=== PATIENT | male | born 1955 | race Hispanic/Latino ===

== ENCOUNTER 2021-01-23 22:03 | Emergency (ER) | payer MEDICARE ==
[2021-01-23 23:20] LABS: Bilirubin Negative (Negative); Blood, Urine 2+ (Negative); Clarity Turbid (Clear); Glucose, Urine (Dipstick) Normal (Negative); Ketone, Urine Negative (Negative); Leukocyte 500 Leu/uL (Negative); Nitrite Negative (Negative); Protein, Urine (Dipstick) 300 mg/dL (Neg-Trace); Specific Gravity, Urine 1.009 (1.002-1.036); Squamous Epithelial None Seen HPF (0-3); Urobilinogen Normal mg/dL (Less than 2); WBC/HPF Greater than 50 HPF (0-3)
[2021-01-23 23:29] LABS: Bacteria/HPF 2+ HPF (None Seen)
[2021-01-24] MEDS ORDERED: cloNIDine 0.1 MG TAB ONE (02:05)
[2021-01-24] MEDS ORDERED: hydrALAZINE 25 MG TAB ONE (02:05)
== END 2021-01-24 02:20 | disposition home or self-care (01) ==
LOC: ERS 22:03
DX: N39.0 Urinary tract infection, site not specified (principal); R33.9 Retention of urine, unspecified; E78.5 Hyperlipidemia, unspecified; I10 Essential (primary) hypertension; E11.22 Type 2 diabetes mellitus with diabetic chronic kidney disease; I12.9 Hypertensive chronic kidney disease with stage 1 through stage 4 chronic kidney disease, or unspecified chronic kidney disease; N18.4 Chronic kidney disease, stage 4 (severe); Z79.899 Other long term (current) drug therapy
CPT/HCPCS: 51703; 81003; 81015

== ENCOUNTER 2021-02-20 15:45 | Inpatient (IN) | payer MEDICARE ==
[2021-02-20 16:18] LABS: #Eosinphils 0.5 thou/uL (0.0-0.7); #Lymphocytes 0.9 thou/uL (1.20-3.40); #Monocytes 0.9 thou/uL (0.11-0.59); #Neutrophils 10.5 thou/uL (1.40-6.50); %Basophils 0.1 % (0.0-1.0); %Eosinophils 4.2 % (0.0-10.0); %Lymphocytes 7.3 % (21.0-51.0); %Monocytes 6.8 % (0.0-10.0); %Neutrophils 81.5 % (42.0-75.0); Hemoglobin 9.4 g/dL (14.0-18.0); Mean Corpuscular HGB CONC 33.7 g/dL (32.0-36.0); Mean Corpuscular Hemoglobin 29.8 pg (27.0-31.0); Mean Corpuscular Volume 88.4 fL (78.0-98.0); Mean Platelet Volume 8.8 fL (7.4-10.4); Platelet Count 172 thou/uL (130-400); RBC Distribution Width 13.1 % (11.5-14.5); Red Blood Cell (RBC) Count 3.15 mill/uL (4.70-6.10); White Blood Cell (WBC) Count 12.9 thou/uL (4.8-10.8)
[2021-02-20 16:39] LABS: ALT (SGPT) 19 U/L (8-55); AST (SGOT) 14 U/L (5-34); Albumin 3.8 g/dL (3.4-4.8); Alkaline Phosphatase 149 U/L (40-110); Anion Gap 12 mmol/L (10-20); BUN (Urea Nitrogen) 64 mg/dL (8.4-25.7); Bilirubin, Total 0.4 mg/dL (0.2-1.2); CK (CPK) 159 U/L (30-200); Calc. Creatinine Clearance 0 mL/min (70-130); Calcium 8.7 mg/dL (7.8-10.44); Carbon Dioxide 20 mmol/L (23-31); Chloride 106 mmol/L (98-107); Globulin 3.6 g/dL (2.4-3.5); Glucose 98 mg/dL (80-115); Potassium 4.4 mmol/L (3.5-5.1); Protein, Total 7.4 g/dL (5.8-8.1); Sodium 134 mmol/L (136-145)
[2021-02-20 19:10] LABS: Bacteria/HPF None Seen HPF (None Seen); Bilirubin Negative (Negative); Blood, Urine 1+ (Negative); Clarity Clear (Clear); Glucose, Urine (Dipstick) Normal (Negative); Ketone, Urine Negative (Negative); Leukocyte 250 Leu/uL (Negative); Nitrite Negative (Negative); Protein, Urine (Dipstick) 300 mg/dL (Neg-Trace); Specific Gravity, Urine 1.007 (1.002-1.036); Squamous Epithelial None Seen HPF (0-3); Urobilinogen Normal mg/dL (Less than 2); WBC/HPF Greater than 50 HPF (0-3)
[2021-02-20] MEDS ORDERED: cefTRIAXone\\ROCEPHIN 1 GM VIAL ONE (20:28)
[2021-02-20] MEDS ORDERED: hydrALAZINE 20 MG/ML VIAL ONE (21:34)
[2021-02-20] MEDS ORDERED: hydrALAZINE 20 MG/ML VIAL SLOW IVP PRN (21:41)
[2021-02-20] MEDS ORDERED: Acetaminophen 325 MG TAB ONE (21:49)
[2021-02-20 22:01] LABS: HBSAg Index 0.23 S/CO (0-0.99); Hep B Surf Ag Non-Reactive S/CO (NonReactive); Hep C IgG Ab Non-Reactive (NonReactive); Hep C Index 0.07 S/CO (0-0.79)
[2021-02-20] MEDS ORDERED: Labetalol HCl 100 MG/20 ML VIAL ONE (23:02)
[2021-02-20] MEDS ORDERED: Ondansetron PF 4 MG/2 ML Vial IVP PRN (23:05)
[2021-02-20] MEDS ORDERED: HumaLOG 300 UNITS/3 ML VIAL SC PRN ×2 (23:05)
[2021-02-20] MEDS ORDERED: Dextrose 50% Abboject 50 ML SYRINGE SLOW IVP PRN (23:05)
[2021-02-20] MEDS ORDERED: Ondansetron ODT 4 MG TAB PO PRN (23:05)
[2021-02-20] MEDS ORDERED: Dextrose 5% in Water 1,000 ML IV PRN (23:05)
[2021-02-20] MEDS ORDERED: NIFEdipine XL 60 MG TAB PO SCH (23:30)
[2021-02-21 01:11] VITALS: BMI 25.7
[2021-02-21] MEDS: Albumin 25% 25 GM/100 ML BOT IVPB SCH ×4 (01:37→14:36)
[2021-02-21 06:14] LABS: #Eosinphils 0.6 thou/uL (0.0-0.7); #Lymphocytes 1.1 thou/uL (1.20-3.40); #Monocytes 0.9 thou/uL (0.11-0.59); #Neutrophils 8.3 thou/uL (1.40-6.50); %Basophils 0.3 % (0.0-1.0); %Eosinophils 5.8 % (0.0-10.0); %Lymphocytes 10.3 % (21.0-51.0); %Monocytes 7.8 % (0.0-10.0); %Neutrophils 75.9 % (42.0-75.0); Hemoglobin 9.3 g/dL (14.0-18.0); Mean Corpuscular HGB CONC 33.6 g/dL (32.0-36.0); Mean Corpuscular Hemoglobin 29.8 pg (27.0-31.0); Mean Corpuscular Volume 88.8 fL (78.0-98.0); Mean Platelet Volume 9.6 fL (7.4-10.4); Platelet Count 167 thou/uL (130-400); RBC Distribution Width 13.1 % (11.5-14.5); Red Blood Cell (RBC) Count 3.11 mill/uL (4.70-6.10); White Blood Cell (WBC) Count 10.9 thou/uL (4.8-10.8)
[2021-02-21 06:34] LABS: Anion Gap 12 mmol/L (10-20); BUN (Urea Nitrogen) 60 mg/dL (8.4-25.7); Calc. Creatinine Clearance 16 mL/min (70-130); Carbon Dioxide 19 mmol/L (23-31); Chloride 110 mmol/L (98-107); Glucose 81 mg/dL (80-115); Iron 20 ug/dL (65-175); Iron Binding Capacity, Total 258 mcg/dL (261-462); Sodium 137 mmol/L (136-145)
[2021-02-21] MEDS: Calcium Acetate 667 MG CAP PO SCH ×3 (08:32→17:31)
[2021-02-21] MEDS: NIFEdipine XL 60 MG TAB PO SCH ×4 (08:33→20:50)
[2021-02-21] MEDS: Calcitriol 0.25 MCG CAP PO SCH (08:33)
[2021-02-21] MEDS: Carvedilol 25 MG TAB PO SCH ×2 (08:34→17:32)
[2021-02-21] MEDS: Heparin 5,000 UNITS/ML VIAL SC SCH ×3 (08:35→20:49)
[2021-02-21] MEDS ORDERED: MULTIVIT MINERALS PO SCH (09:00)
[2021-02-21] MEDS ORDERED: [UNRECOGNIZED DRUG - OTHER] PO SCH (09:00)
[2021-02-21] MEDS ORDERED: LYCOPENE PO SCH (09:00)
[2021-02-21] MEDS ORDERED: Non-Formulary Item 1 EACH (Sodium Bicarbonate [Sodium Bicarbonate] 650 MG Tablet) PO SCH (09:00)
[2021-02-21] MEDS ORDERED: hydrALAZINE 25 MG TAB PO SCH (09:00)
[2021-02-21] MEDS ORDERED: Non-Formulary Item 1 EACH (Ferrous Sulfate [Ferrous Sulfate] 325 MG Tablet) PO SCH (09:00)
[2021-02-21] MEDS ORDERED: Carvedilol 25 MG TAB PO SCH (09:00)
[2021-02-21] MEDS: Ferrous Sulfate 325 MG TAB PO SCH ×2 (10:16→20:49)
[2021-02-21] MEDS: Sodium Bicarbonate Tab 325 MG TAB PO SCH ×2 (10:16→20:48)
[2021-02-21] MEDS: Multivitamin W/ Minerals 1 TAB PO SCH (10:17)
[2021-02-21] MEDS: Tamsulosin HCl 0.4 MG CAP PO SCH (10:17)
[2021-02-21] MEDS: hydrALAZINE 25 MG TAB PO SCH ×2 (10:25→20:48)
[2021-02-21 12:01] LABS: #Basophils 0.1 thou/uL (0.0-0.2); #Eosinphils 0.6 thou/uL (0.0-0.7); #Lymphocytes 0.7 thou/uL (1.20-3.40); #Monocytes 0.7 thou/uL (0.11-0.59); %Basophils 0.6 % (0.0-1.0); %Eosinophils 7.1 % (0.0-10.0); %Lymphocytes 7.7 % (21.0-51.0); %Monocytes 7.4 % (0.0-10.0); %Neutrophils 77.2 % (42.0-75.0); Hemoglobin 9.1 g/dL (14.0-18.0); Mean Corpuscular HGB CONC 32.5 g/dL (32.0-36.0); Mean Corpuscular Hemoglobin 28.8 pg (27.0-31.0); Mean Corpuscular Volume 88.5 fL (78.0-98.0); Mean Platelet Volume 9.3 fL (7.4-10.4); Platelet Count 170 thou/uL (130-400); RBC Distribution Width 13.4 % (11.5-14.5); Red Blood Cell (RBC) Count 3.17 mill/uL (4.70-6.10)
[2021-02-21 19:38] LABS: SARS-CoV-2 PCR by NAA Not Detected (NotDetected)
[2021-02-21] MEDS ORDERED: cefTRIAXone\\ROCEPHIN 1 GM in Sodium Chloride 0.9% 100 ML IVPB SCH (20:00)
[2021-02-21] MEDS: Acetaminophen 325 MG TAB PO PRN (20:47)
[2021-02-21] MEDS: Atorvastatin Calcium 20 MG TAB PO SCH (20:49)
[2021-02-21] MEDS ORDERED: Simvastatin 40 MG TAB PO SCH (21:00)
[2021-02-22 06:19] LABS: Anion Gap 14 mmol/L (10-20); BUN (Urea Nitrogen) 55 mg/dL (8.4-25.7); Calc. Creatinine Clearance 16 mL/min (70-130); Calcium 9.1 mg/dL (7.8-10.44); Carbon Dioxide 19 mmol/L (23-31); Chloride 107 mmol/L (98-107); Glucose 116 mg/dL (80-115); Sodium 136 mmol/L (136-145)
[2021-02-22] MEDS: NIFEdipine XL 60 MG TAB PO SCH ×3 (09:36→20:13)
[2021-02-22] MEDS: Tamsulosin HCl 0.4 MG CAP PO SCH (09:36)
[2021-02-22] MEDS: Multivitamin W/ Minerals 1 TAB PO SCH (09:36)
[2021-02-22] MEDS: Calcium Acetate 667 MG CAP PO SCH ×3 (09:36→17:49)
[2021-02-22] MEDS: Ferrous Sulfate 325 MG TAB PO SCH ×2 (09:36→20:14)
[2021-02-22] MEDS: hydrALAZINE 25 MG TAB PO SCH ×2 (09:37→20:14)
[2021-02-22] MEDS: Calcitriol 0.25 MCG CAP PO SCH (09:37)
[2021-02-22] MEDS: Sodium Bicarbonate Tab 325 MG TAB PO SCH ×2 (09:37→20:13)
[2021-02-22] MEDS: Carvedilol 25 MG TAB PO SCH ×2 (09:37→17:49)
[2021-02-22] MEDS: Heparin 5,000 UNITS/ML VIAL SC SCH ×3 (09:37→20:13)
[2021-02-22 16:14] LABS: ANA Symphony (Qualitative) Negative (Negative); ANA Symphony (Quantitative) 0.1 Ratio (< 0.7 Negative); dsDNA IgG Antibody Less than 0.5 IU/mL (<10 Negative)
[2021-02-22] MEDS: Atorvastatin Calcium 20 MG TAB PO SCH (20:14)
[2021-02-22] MEDS: Cephalexin 250 MG CAP PO SCH (20:14)
[2021-02-23] MEDS: Acetaminophen 325 MG TAB PO PRN ×2 (05:20→15:02)
[2021-02-23 05:52] LABS: #Eosinphils 0.9 thou/uL (0.0-0.7); #Lymphocytes 1.2 thou/uL (1.20-3.40); #Monocytes 1.1 thou/uL (0.11-0.59); #Neutrophils 8.1 thou/uL (1.40-6.50); %Basophils 0.4 % (0.0-1.0); %Eosinophils 7.9 % (0.0-10.0); %Lymphocytes 10.4 % (21.0-51.0); %Monocytes 9.8 % (0.0-10.0); %Neutrophils 71.5 % (42.0-75.0); Hemoglobin 8.1 g/dL (14.0-18.0); Mean Corpuscular HGB CONC 33.2 g/dL (32.0-36.0); Mean Corpuscular Hemoglobin 29.2 pg (27.0-31.0); Mean Platelet Volume 9.5 fL (7.4-10.4); Platelet Count 166 thou/uL (130-400); RBC Distribution Width 13.1 % (11.5-14.5); Red Blood Cell (RBC) Count 2.78 mill/uL (4.70-6.10); White Blood Cell (WBC) Count 11.3 thou/uL (4.8-10.8)
[2021-02-23 06:13] LABS: Anion Gap 13 mmol/L (10-20); BUN (Urea Nitrogen) 57 mg/dL (8.4-25.7); Calc. Creatinine Clearance 15 mL/min (70-130); Calcium 8.9 mg/dL (7.8-10.44); Carbon Dioxide 19 mmol/L (23-31); Chloride 106 mmol/L (98-107); Glucose 92 mg/dL (80-115); Potassium 4.2 mmol/L (3.5-5.1); Sodium 134 mmol/L (136-145)
[2021-02-23] MEDS: Ferrous Sulfate 325 MG TAB PO SCH ×2 (08:06→20:15)
[2021-02-23] MEDS: Multivitamin W/ Minerals 1 TAB PO SCH (08:06)
[2021-02-23] MEDS: Calcium Acetate 667 MG CAP PO SCH ×3 (08:06→16:02)
[2021-02-23] MEDS: Calcitriol 0.25 MCG CAP PO SCH (08:06)
[2021-02-23] MEDS: Carvedilol 25 MG TAB PO SCH ×2 (08:06→16:02)
[2021-02-23] MEDS: Sodium Bicarbonate Tab 325 MG TAB PO SCH ×2 (08:06→20:22)
[2021-02-23] MEDS: Tamsulosin HCl 0.4 MG CAP PO SCH (08:07)
[2021-02-23] MEDS: NIFEdipine XL 60 MG TAB PO SCH ×2 (08:07→20:16)
[2021-02-23] MEDS: hydrALAZINE 25 MG TAB PO SCH ×2 (08:07→20:15)
[2021-02-23] MEDS: Heparin 5,000 UNITS/ML VIAL SC SCH ×3 (08:07→20:16)
[2021-02-23] MEDS: Cephalexin 250 MG CAP PO SCH ×2 (08:07→20:22)
[2021-02-23] MEDS ORDERED: EPOETIN ALFA-EPBX (ESRD) 4,000 UNIT/ML VIAL SC SCH (10:00)
[2021-02-23] MEDS ORDERED: CEFAZOLIN 2 GM in Premix Bag 1 BAG IVPB SCH (13:00)
[2021-02-23 15:13] LABS: Albumin 3.3 g/dL (2.9-4.4); Alpha 1 0.3 g/dL (0.0-0.4); Beta 0.9 g/dL (0.7-1.3); Globulin, Total 3.3 g/dL (2.2-3.9); M-Spike Not Observed g/dL (Not Observed)
[2021-02-23 15:37] LABS: Alpha 1 - Ur 8.8 % (.); Alpha 2 - Ur 9.8 % (.); Beta-Ur 16.1 % (.); Gamma-Ur 13.4 % (.); M-Spike,% Not Observed % (Not Observed)
[2021-02-23] MEDS: Atorvastatin Calcium 20 MG TAB PO SCH (20:15)
[2021-02-24 06:54] LABS: #Basophils 0.1 thou/uL (0.0-0.2); #Eosinphils 0.8 thou/uL (0.0-0.7); #Lymphocytes 1.5 thou/uL (1.20-3.40); #Neutrophils 6.6 thou/uL (1.40-6.50); %Basophils 0.6 % (0.0-1.0); %Eosinophils 8.5 % (0.0-10.0); %Lymphocytes 15.2 % (21.0-51.0); %Monocytes 10.4 % (0.0-10.0); %Neutrophils 65.4 % (42.0-75.0); Hemoglobin 8.4 g/dL (14.0-18.0); Mean Corpuscular HGB CONC 33.4 g/dL (32.0-36.0); Mean Corpuscular Hemoglobin 29.4 pg (27.0-31.0); Mean Corpuscular Volume 88.1 fL (78.0-98.0); Mean Platelet Volume 9.5 fL (7.4-10.4); Platelet Count 163 thou/uL (130-400); RBC Distribution Width 12.9 % (11.5-14.5); Red Blood Cell (RBC) Count 2.86 mill/uL (4.70-6.10)
[2021-02-24 07:13] LABS: Anion Gap 14 mmol/L (10-20); BUN (Urea Nitrogen) 62 mg/dL (8.4-25.7); Calc. Creatinine Clearance 14 mL/min (70-130); Calcium 9.1 mg/dL (7.8-10.44); Carbon Dioxide 19 mmol/L (23-31); Chloride 103 mmol/L (98-107); Glucose 93 mg/dL (80-115); Potassium 4.2 mmol/L (3.5-5.1); Sodium 132 mmol/L (136-145)
[2021-02-24] MEDS: Calcium Acetate 667 MG CAP PO SCH ×3 (08:27→18:13)
[2021-02-24] MEDS: Heparin 5,000 UNITS/ML VIAL SC SCH ×3 (08:28→20:12)
[2021-02-24] MEDS: Cephalexin 250 MG CAP PO SCH ×2 (09:21→20:16)
[2021-02-24] MEDS: NIFEdipine XL 60 MG TAB PO SCH ×2 (09:21→20:12)
[2021-02-24] MEDS: hydrALAZINE 25 MG TAB PO SCH ×2 (09:21→20:13)
[2021-02-24] MEDS: Sodium Bicarbonate Tab 325 MG TAB PO SCH ×2 (09:21→20:12)
[2021-02-24] MEDS: Multivitamin W/ Minerals 1 TAB PO SCH (09:22)
[2021-02-24] MEDS: Tamsulosin HCl 0.4 MG CAP PO SCH (09:22)
[2021-02-24] MEDS: Ferrous Sulfate 325 MG TAB PO SCH ×2 (09:22→20:13)
[2021-02-24] MEDS: Calcitriol 0.25 MCG CAP PO SCH (09:22)
[2021-02-24] MEDS: Carvedilol 25 MG TAB PO SCH ×2 (09:22→18:13)
[2021-02-24] MEDS ORDERED: Tuberculin PPD 0.1 ML VIAL I-DERMAL SCH (10:00)
[2021-02-24 11:26] LABS: HBSAB Concentration Less than 8.00 mIU/mL; HBSAg Index 0.18 S/CO (0-0.99); Hep B Core Total Ab Non-Reactive (NonReactive); Hep B Core Total Index 0.06 S/CO (0-0.79); Hep B Surf AB Non-Reactive (NonReactive); Hep B Surf Ag Non-Reactive S/CO (NonReactive); Hep C IgG Ab Non-Reactive (NonReactive); Hep C Index 0.06 S/CO (0-0.79)
[2021-02-24] MEDS ORDERED: Lidocaine 2% Jelly 5 ML TUBE ONE (13:04)
[2021-02-24] MEDS ORDERED: Bupivacaine 0.25% HCL 30 ML VIAL ONE (13:04)
[2021-02-24] MEDS ORDERED: Heparin 5,000 UNITS/ML VIAL ONE (13:04)
[2021-02-24] MEDS ORDERED: EPINEPHrine 1 MG/ML AMP ONE (13:04)
[2021-02-24] MEDS ORDERED: Heparin 10,000 UNITS/ 10 ML VIAL ONE (13:04)
[2021-02-24] MEDS ORDERED: Protamine Sulfate 50 MG/5 ML VIAL ONE (13:04)
[2021-02-24] MEDS ORDERED: Lidocaine 2% PF 5 ML VIAL ONE (13:05)
[2021-02-24] MEDS ORDERED: Fentanyl 100 MCG/2 ML VIAL ONE ×4 (13:43→16:20)
[2021-02-24] MEDS ORDERED: Rocuronium Bromide 10 MG/ML (10ML VIAL) ONE (14:09)
[2021-02-24] MEDS ORDERED: PROPOFOL 200 MG/20 ML VIAL ONE (14:09)
[2021-02-24] MEDS ORDERED: Glycopyrrolate 0.2 MG/ML 5 ML SYRINGE ONE (14:09)
[2021-02-24] MEDS ORDERED: Lidocaine 1% PF 5 ML VIAL ONE (14:09)
[2021-02-24] MEDS ORDERED: Ondansetron PF 4 MG/2 ML Vial ONE (14:09)
[2021-02-24 14:47] LABS: Cytoplasmic (C-ANCA) <1:20 titer (Neg:<1:20); Myeloperoxidase AutoAbs <9.0 U/mL (0.0-9.0); Perinuclear (P-ANCA) <1:20 titer (Neg:<1:20); Proteinase-3 AutoAbs Less than 3.5 U/mL (0.0-3.5)
[2021-02-24] MEDS ORDERED: Promethazine HCl 25 MG/ML VIAL IVPB PRN (15:33)
[2021-02-24] MEDS ORDERED: Ondansetron HCl/PF 4 MG/2 ML Vial IVP PRN (15:33)
[2021-02-24] MEDS ORDERED: Promethazine HCl 25 MG/ML VIAL IM PRN (15:33)
[2021-02-24] MEDS: traMADol HCl 50 MG TAB PO PRN (18:16)
[2021-02-24] MEDS: Atorvastatin Calcium 20 MG TAB PO SCH (20:13)
[2021-02-24] MEDS ORDERED: HYDROcodone/Acetaminophen 5/325 mg Tablet PO SCH (20:45)
[2021-02-25 07:34] LABS: #Basophils 0.1 thou/uL (0.0-0.2); #Eosinphils 0.6 thou/uL (0.0-0.7); #Lymphocytes 1.2 thou/uL (1.20-3.40); #Monocytes 1.1 thou/uL (0.11-0.59); %Basophils 0.7 % (0.0-1.0); %Eosinophils 5.6 % (0.0-10.0); %Lymphocytes 12.3 % (21.0-51.0); %Monocytes 10.9 % (0.0-10.0); %Neutrophils 70.6 % (42.0-75.0); Hemoglobin 7.9 g/dL (14.0-18.0); Mean Corpuscular HGB CONC 31.2 g/dL (32.0-36.0); Mean Corpuscular Hemoglobin 28.2 pg (27.0-31.0); Mean Corpuscular Volume 90.2 fL (78.0-98.0); Mean Platelet Volume 9.7 fL (7.4-10.4); Platelet Count 184 thou/uL (130-400); Red Blood Cell (RBC) Count 2.81 mill/uL (4.70-6.10); White Blood Cell (WBC) Count 9.9 thou/uL (4.8-10.8)
[2021-02-25 07:54] LABS: Anion Gap 17 mmol/L (10-20); BUN (Urea Nitrogen) 66 mg/dL (8.4-25.7); Calc. Creatinine Clearance 13 mL/min (70-130); Calcium 8.8 mg/dL (7.8-10.44); Carbon Dioxide 18 mmol/L (23-31); Chloride 101 mmol/L (98-107); Glucose 80 mg/dL (80-115); Potassium 4.7 mmol/L (3.5-5.1); Sodium 131 mmol/L (136-145)
[2021-02-25] MEDS: hydrALAZINE 25 MG TAB PO SCH ×2 (08:30→22:31)
[2021-02-25] MEDS: Sodium Bicarbonate Tab 325 MG TAB PO SCH ×2 (08:31→22:30)
[2021-02-25] MEDS: Cephalexin 250 MG CAP PO SCH ×2 (08:31→22:31)
[2021-02-25] MEDS: Calcium Acetate 667 MG CAP PO SCH ×3 (08:31→17:38)
[2021-02-25] MEDS: Tamsulosin HCl 0.4 MG CAP PO SCH (08:31)
[2021-02-25] MEDS: NIFEdipine XL 60 MG TAB PO SCH ×2 (08:31→22:30)
[2021-02-25] MEDS: Heparin 5,000 UNITS/ML VIAL SC SCH ×3 (08:32→22:32)
[2021-02-25] MEDS: Carvedilol 25 MG TAB PO SCH ×2 (08:32→17:38)
[2021-02-25] MEDS: Ferrous Sulfate 325 MG TAB PO SCH ×2 (08:32→22:31)
[2021-02-25] MEDS: Multivitamin W/ Minerals 1 TAB PO SCH (08:32)
[2021-02-25] MEDS: Calcitriol 0.25 MCG CAP PO SCH (08:32)
[2021-02-25] MEDS: Acetaminophen 500 MG TAB PO PRN ×2 (12:46→22:33)
[2021-02-25] MEDS: Senokot S 8.6-50 MG TAB PO SCH (22:31)
[2021-02-25] MEDS: Atorvastatin Calcium 20 MG TAB PO SCH (22:32)
[2021-02-26 06:25] LABS: #Eosinphils 0.6 thou/uL (0.0-0.7); #Lymphocytes 1.1 thou/uL (1.20-3.40); #Monocytes 0.9 thou/uL (0.11-0.59); #Neutrophils 6.2 thou/uL (1.40-6.50); %Basophils 0.1 % (0.0-1.0); %Eosinophils 6.7 % (0.0-10.0); %Lymphocytes 12.3 % (21.0-51.0); %Monocytes 9.7 % (0.0-10.0); %Neutrophils 71.2 % (42.0-75.0); Hemoglobin 8.1 g/dL (14.0-18.0); Mean Corpuscular HGB CONC 32.1 g/dL (32.0-36.0); Mean Corpuscular Hemoglobin 28.1 pg (27.0-31.0); Mean Corpuscular Volume 87.7 fL (78.0-98.0); Mean Platelet Volume 9.3 fL (7.4-10.4); Platelet Count 191 thou/uL (130-400); RBC Distribution Width 12.8 % (11.5-14.5); White Blood Cell (WBC) Count 8.8 thou/uL (4.8-10.8)
[2021-02-26 06:44] LABS: Anion Gap 14 mmol/L (10-20); BUN (Urea Nitrogen) 66 mg/dL (8.4-25.7); Calc. Creatinine Clearance 13 mL/min (70-130); Calcium 8.9 mg/dL (7.8-10.44); Carbon Dioxide 20 mmol/L (23-31); Chloride 100 mmol/L (98-107); Glucose 82 mg/dL (80-115); Potassium 4.3 mmol/L (3.5-5.1); Sodium 130 mmol/L (136-145)
[2021-02-26] MEDS: Sodium Bicarbonate Tab 325 MG TAB PO SCH ×2 (08:42→21:23)
[2021-02-26] MEDS: NIFEdipine XL 60 MG TAB PO SCH ×2 (08:42→21:26)
[2021-02-26] MEDS: Multivitamin W/ Minerals 1 TAB PO SCH (08:42)
[2021-02-26] MEDS: Calcium Acetate 667 MG CAP PO SCH ×3 (08:42→17:31)
[2021-02-26] MEDS: Polyethylene Glycol 3350 17 GM Packet PER TUBE SCH (08:42)
[2021-02-26] MEDS: Tamsulosin HCl 0.4 MG CAP PO SCH (08:43)
[2021-02-26] MEDS: hydrALAZINE 25 MG TAB PO SCH ×2 (08:43→21:23)
[2021-02-26] MEDS: Senokot S 8.6-50 MG TAB PO SCH ×2 (08:43→21:23)
[2021-02-26] MEDS: Carvedilol 25 MG TAB PO SCH ×2 (08:43→17:31)
[2021-02-26] MEDS: Ferrous Sulfate 325 MG TAB PO SCH ×2 (08:43→21:24)
[2021-02-26] MEDS: Cephalexin 250 MG CAP PO SCH ×2 (08:43→21:24)
[2021-02-26] MEDS: Calcitriol 0.25 MCG CAP PO SCH ×2 (08:43→08:44)
[2021-02-26] MEDS: Heparin 5,000 UNITS/ML VIAL SC SCH ×3 (08:44→21:26)
[2021-02-26] MEDS: traMADol HCl 50 MG TAB PO PRN ×3 (08:48→21:24)
[2021-02-26] MEDS: Atorvastatin Calcium 20 MG TAB PO SCH (21:24)
[2021-02-27 06:35] LABS: #Eosinphils 0.6 thou/uL (0.0-0.7); #Neutrophils 6.3 thou/uL (1.40-6.50); %Basophils 0.4 % (0.0-1.0); %Eosinophils 6.8 % (0.0-10.0); %Lymphocytes 11.6 % (21.0-51.0); %Monocytes 11.2 % (0.0-10.0); Hemoglobin 7.7 g/dL (14.0-18.0); Mean Corpuscular HGB CONC 33.3 g/dL (32.0-36.0); Mean Corpuscular Hemoglobin 28.9 pg (27.0-31.0); Mean Corpuscular Volume 86.8 fL (78.0-98.0); Mean Platelet Volume 9.1 fL (7.4-10.4); Platelet Count 219 thou/uL (130-400); RBC Distribution Width 12.9 % (11.5-14.5); Red Blood Cell (RBC) Count 2.66 mill/uL (4.70-6.10)
[2021-02-27 06:56] LABS: Anion Gap 15 mmol/L (10-20); BUN (Urea Nitrogen) 69 mg/dL (8.4-25.7); Calc. Creatinine Clearance 13 mL/min (70-130); Calcium 9.4 mg/dL (7.8-10.44); Carbon Dioxide 20 mmol/L (23-31); Chloride 99 mmol/L (98-107); Glucose 86 mg/dL (80-115); Potassium 4.8 mmol/L (3.5-5.1); Sodium 129 mmol/L (136-145)
[2021-02-27] MEDS ORDERED: traMADol HCl 50 MG TAB PO PRN (07:30)
[2021-02-27] MEDS: Calcium Acetate 667 MG CAP PO SCH ×2 (08:14→12:43)
[2021-02-27] MEDS: Sodium Bicarbonate Tab 325 MG TAB PO SCH (08:14)
[2021-02-27] MEDS: Multivitamin W/ Minerals 1 TAB PO SCH (08:15)
[2021-02-27] MEDS: Senokot S 8.6-50 MG TAB PO SCH (08:15)
[2021-02-27] MEDS: Cephalexin 250 MG CAP PO SCH (08:15)
[2021-02-27] MEDS: Ferrous Sulfate 325 MG TAB PO SCH (08:15)
[2021-02-27] MEDS: Polyethylene Glycol 3350 17 GM Packet PER TUBE SCH (08:15)
[2021-02-27] MEDS: NIFEdipine XL 60 MG TAB PO SCH (08:15)
[2021-02-27] MEDS: Tamsulosin HCl 0.4 MG CAP PO SCH (08:16)
[2021-02-27] MEDS: Carvedilol 25 MG TAB PO SCH (08:16)
[2021-02-27] MEDS: Calcitriol 0.25 MCG CAP PO SCH (08:16)
[2021-02-27] MEDS: hydrALAZINE 25 MG TAB PO SCH (08:16)
[2021-02-27] MEDS: Heparin 5,000 UNITS/ML VIAL SC SCH (08:18)
[2021-02-27] MEDS: Acetaminophen 500 MG TAB PO PRN (08:22)
[2021-02-27] MEDS ORDERED: Furosemide 40 MG/4 ML VIAL SLOW IVP SCH (11:15)
[2021-02-27 12:34] VITALS: BP 164/70; TEMP 97.6
== END 2021-02-27 14:49 | disposition home or self-care (01) | DRG 673 ==
LOC: ERS 15:45 → T4-A 20:00
PROVIDERS: ADMIT Student in an Organized Health Care Education/Training Program; ATTEND Internal Medicine
PROC: 0WHG43Z Insertion of Infusion Device into Peritoneal Cavity, Percutaneous Endoscopic Approach (ICD-10-PCS; principal; 2021-02-24)
PROC: 0DQU4ZZ Repair Omentum, Percutaneous Endoscopic Approach (ICD-10-PCS; 2021-02-24)
PROC: 031C0ZF Bypass Left Radial Artery to Lower Arm Vein, Open Approach (ICD-10-PCS; 2021-02-24)
PROC: 3E1M39Z Irrigation of Peritoneal Cavity using Dialysate, Percutaneous Approach (ICD-10-PCS; 2021-02-24)
DX: I12.0 Hypertensive chronic kidney disease with stage 5 chronic kidney disease or end stage renal disease (principal); N18.6 End stage renal disease; T83.518A Infection and inflammatory reaction due to other urinary catheter, initial encounter; N17.9 Acute kidney failure, unspecified; N10 Acute pyelonephritis; N25.81 Secondary hyperparathyroidism of renal origin; Z20.822 Contact with and (suspected) exposure to COVID-19; E78.5 Hyperlipidemia, unspecified; N40.0 Benign prostatic hyperplasia without lower urinary tract symptoms; E11.22 Type 2 diabetes mellitus with diabetic chronic kidney disease; D63.1 Anemia in chronic kidney disease; D50.9 Iron deficiency anemia, unspecified; E83.39 Other disorders of phosphorus metabolism; Z79.84 Long term (current) use of oral hypoglycemic drugs; Z79.899 Other long term (current) drug therapy; Y84.6 Urinary catheterization as the cause of abnormal reaction of the patient, or of later complication, without mention of misadventure at the time of the procedure
CPT/HCPCS: 36415; 36416; 51702; 71045; 74176; 76770; 80048; 80053; 81001; 81003; 81015; 82550; 82728; 83520; 83540; 83550; 83735; 83880; 83970; 84100; 84165; 84166; 84484; 85025; 86038; 86225; 86256; 86704; 86706; 86803; 87340; 93005; 93970; 96365; 96375; J0171; J0360; J0690; J0696; J1644; J1815; J1940; J2001; J2405; J2704; J2720; J3010; J3490; P9047; Q5105; S0020; U0003; U0005

== ENCOUNTER 2021-03-31 15:20 | Emergency (ER) | payer MEDICARE ==
[2021-03-31] MEDS ORDERED: Acetaminophen 500 MG TAB ONE (15:48)
[2021-03-31 16:18] LABS: #Eosinphils 0.4 thou/uL (0.0-0.7); #Monocytes 1.2 thou/uL (0.11-0.59); %Basophils 0.1 % (0.0-1.0); %Eosinophils 2.3 % (0.0-10.0); %Lymphocytes 5.6 % (21.0-51.0); %Neutrophils 85.1 % (42.0-75.0); Hemoglobin 12.5 g/dL (14.0-18.0); Mean Corpuscular HGB CONC 32.3 g/dL (32.0-36.0); Mean Corpuscular Hemoglobin 28.8 pg (27.0-31.0); Mean Platelet Volume 8.6 fL (7.4-10.4); Platelet Count 184 thou/uL (130-400); RBC Distribution Width 13.7 % (11.5-14.5); Red Blood Cell (RBC) Count 4.33 mill/uL (4.70-6.10); White Blood Cell (WBC) Count 17.6 thou/uL (4.8-10.8)
[2021-03-31 16:40] LABS: ALT (SGPT) 15 U/L (8-55); AST (SGOT) 13 U/L (5-34); Albumin 3.6 g/dL (3.4-4.8); Alkaline Phosphatase 136 U/L (40-110); Anion Gap 15 mmol/L (10-20); BUN (Urea Nitrogen) 32 mg/dL (8.4-25.7); Bilirubin, Total 0.4 mg/dL (0.2-1.2); CK (CPK) 73 U/L (30-200); Calc. Creatinine Clearance 0 mL/min (70-130); Calcium 8.6 mg/dL (7.8-10.44); Carbon Dioxide 25 mmol/L (23-31); Chloride 102 mmol/L (98-107); Globulin 2.9 g/dL (2.4-3.5); Glucose 101 mg/dL (80-115); Potassium 5.1 mmol/L (3.5-5.1); Protein, Total 6.5 g/dL (5.8-8.1); Sodium 137 mmol/L (136-145)
[2021-03-31 17:05] LABS: SARS-CoV-2 NAA Rapid Test Not Detected (NotDetected)
[2021-03-31 17:17] LABS: Bilirubin Negative (Negative); Blood, Urine 1+ (Negative); Clarity Turbid (Clear); Glucose, Urine (Dipstick) 100 mg/dL (Negative); Ketone, Urine Negative (Negative); Leukocyte 500 Leu/uL (Negative); Nitrite Negative (Negative); Protein, Urine (Dipstick) 600 mg/dL (Neg-Trace); Specific Gravity, Urine 1.016 (1.002-1.036); Squamous Epithelial 0-3 HPF (0-3); Urobilinogen Normal mg/dL (Less than 2); WBC/HPF Greater than 50 HPF (0-3)
[2021-03-31 17:21] LABS: Bacteria/HPF 1+ HPF (None Seen)
== END 2021-03-31 18:15 | disposition home or self-care (01) ==
LOC: ERS 15:20
DX: N30.00 Acute cystitis without hematuria (principal); Z20.822 Contact with and (suspected) exposure to COVID-19; N18.4 Chronic kidney disease, stage 4 (severe); E11.22 Type 2 diabetes mellitus with diabetic chronic kidney disease; E78.5 Hyperlipidemia, unspecified; I12.9 Hypertensive chronic kidney disease with stage 1 through stage 4 chronic kidney disease, or unspecified chronic kidney disease; Z87.891 Personal history of nicotine dependence
CPT/HCPCS: 71045; 80053; 82550; 83605; 84484; 85025; 87086; 93005; 99284; U0002; 36415; 81003; 81015

== ENCOUNTER 2021-11-19 13:04 | Outpatient (CLI) | payer MEDICARE ==
[2021-11-20 00:52] LABS: SARS-CoV-2 PCR by NAA Not Detected (NotDetected)
== END 2021-11-19 13:05 | disposition home or self-care (01) ==
LOC: LABBT 13:04
PROVIDERS: ATTEND Ophthalmology Retina Specialist
DX: H43.11 Vitreous hemorrhage, right eye (principal); Z20.822 Contact with and (suspected) exposure to COVID-19
CPT/HCPCS: U0003; U0005

== ENCOUNTER 2021-11-24 06:32 | Day surgery (SDC) | payer MEDICARE ==
[2021-11-20 10:32] VITALS: BMI 27.3
[~2021-11-24 06:32] MED LIST: EPINEPHrine 0.3 MG in Ophthalmic Irrigation Solution 500 ML IRR SCH
[2021-11-24] MEDS ORDERED: Phenylephrine 2.5% Ophth Soln 5 ML BOT ONE (06:43)
[2021-11-24] MEDS ORDERED: Cyclopentolate 1% Opth Drop 2 ML BOT ONE (06:43)
[2021-11-24] MEDS ORDERED: fentaNYL Citrate/PF 100 MCG/2 ML SYRINGE ONE (06:50)
[2021-11-24] MEDS ORDERED: Midazolam HCl 2 mg/2 ml Vial ONE (06:50)
[2021-11-24] MEDS ORDERED: Triamcinolone 40 MG/ML VIAL ONE (08:23)
[2021-11-24] MEDS ORDERED: Lidocaine 4% PF 5 ML AMP ONE (08:23)
[2021-11-24] MEDS ORDERED: Bupivacaine 0.75% 10 ML VIAL ONE (08:23)
[2021-11-24] MEDS ORDERED: PROPOFOL 200 MG/20 ML VIAL ONE (08:23)
[2021-11-24] MEDS ORDERED: Maxitrol 0.1% Opth Oint 3.5 GM TUBE ONE (08:23)
[2021-11-24] MEDS ORDERED: Lidocaine 1% PF 5 ML VIAL ONE (08:23)
[2021-11-24] MEDS ORDERED: CEFAZOLIN 1 GM VIAL ONE (08:23)
== END 2021-11-24 09:45 | disposition home or self-care (01) ==
LOC: SDC 06:32
PROVIDERS: ATTEND Ophthalmology Retina Specialist
PROC: 08T43ZZ Resection of Right Vitreous, Percutaneous Approach (ICD-10-PCS; principal; 2021-11-24)
PROC: 08QE3ZZ Repair Right Retina, Percutaneous Approach (ICD-10-PCS; 2021-11-24)
DX: H43.11 Vitreous hemorrhage, right eye (principal); E11.3591 Type 2 diabetes mellitus with proliferative diabetic retinopathy without macular edema, right eye; Z79.84 Long term (current) use of oral hypoglycemic drugs; Z79.899 Other long term (current) drug therapy
CPT/HCPCS: J0171; J0690; J2250; J2704; J3301; J3490

== ENCOUNTER 2023-01-13 09:55 | Inpatient (IN) | payer MEDICARE, OTHER ==
[2023-01-13 10:59] LABS: #Basophils 0.1 thou/uL (0.0-0.2); #Eosinphils 0.2 thou/uL (0.0-0.7); #Monocytes 0.7 thou/uL (0.11-0.59); #Neutrophils 5.3 thou/uL (1.40-6.50); %Basophils 0.8 % (0.0-1.0); %Eosinophils 2.9 % (0.0-10.0); %Lymphocytes 14.8 % (21.0-51.0); %Monocytes 9.7 % (0.0-10.0); %Neutrophils 71.4 % (42.0-75.0); Hemoglobin 7.4 g/dL (14.0-18.0); Mean Corpuscular HGB CONC 32.7 g/dL (32.0-36.0); Mean Corpuscular Hemoglobin 27.7 pg (27.0-31.0); Mean Corpuscular Volume 84.6 fl (78.0-98.0); Mean Platelet Volume 11.6 fL (7.4-10.4); Platelet Count 172 10x3/uL (130-400); RBC Distribution Width 16.4 % (11.5-14.5); Red Blood Cell (RBC) Count 2.67 mill/uL (4.70-6.10); White Blood Cell (WBC) Count 7.5 10x3/uL (4.8-10.8)
[2023-01-13 11:26] LABS: ALT (SGPT) 9 U/L (8-55); AST (SGOT) 8 U/L (5-34); Alkaline Phosphatase 84 U/L (40-110); Anion Gap 15 mmol/L (10-20); BUN (Urea Nitrogen) 11 mg/dL (8.4-25.7); Bilirubin, Total 0.5 mg/dL (0.2-1.2); Calc. Creatinine Clearance 0 mL/min (70-130); Calcium 8.8 mg/dL (7.8-10.44); Carbon Dioxide 30 mmol/L (23-31); Chloride 100 mmol/L (98-107); Estimated GFR 17; Globulin 2.2 g/dL (2.4-3.5); Glucose 122 mg/dL (80-115); Protein, Total 6.2 g/dL (5.8-8.1); Sodium 141 mmol/L (136-145)
[2023-01-13 14:03] LABS: Cardiac Risk 3.8 (Less than 4.5)
[2023-01-13 14:31] LABS: Hemoglobin 7.4 g/dL (14.0-18.0)
[2023-01-13 16:55] VITALS: BMI 26.2
[2023-01-13 19:51] LABS: Hemoglobin 6.2 g/dL (14.0-18.0)
[2023-01-13] MEDS ORDERED: GoLYTELY 4,000 ml Bottle PO SCH (21:30)
[2023-01-13] MEDS: Pantoprazole 40 MG VIAL IVP SCH (22:43)
[2023-01-13] MEDS ORDERED: Ondansetron PF 4 MG/2 ML Vial IVP PRN (23:39)
[2023-01-13] MEDS ORDERED: Ondansetron ODT 4 MG TAB PO PRN (23:39)
[2023-01-14 06:23] LABS: #Basophils 0.1 thou/uL (0.0-0.2); #Eosinphils 0.2 thou/uL (0.0-0.7); #Monocytes 0.7 thou/uL (0.11-0.59); #Neutrophils 6.5 thou/uL (1.40-6.50); %Basophils 0.6 % (0.0-1.0); %Eosinophils 1.9 % (0.0-10.0); %Lymphocytes 12.5 % (21.0-51.0); %Monocytes 8.3 % (0.0-10.0); %Neutrophils 76.2 % (42.0-75.0); Mean Corpuscular Hemoglobin 28.8 pg (27.0-31.0); Mean Platelet Volume 11.6 fL (7.4-10.4); Platelet Count 131 10x3/uL (130-400); RBC Distribution Width 15.8 % (11.5-14.5); Red Blood Cell (RBC) Count 2.08 mill/uL (4.70-6.10); White Blood Cell (WBC) Count 8.5 10x3/uL (4.8-10.8)
[2023-01-14 06:33] LABS: ALT (SGPT) 7 U/L (8-55); AST (SGOT) 13 U/L (5-34); Albumin 3.1 g/dL (3.4-4.8); Alkaline Phosphatase 58 U/L (40-110); Anion Gap 16 mmol/L (10-20); BUN (Urea Nitrogen) 16 mg/dL (8.4-25.7); Bilirubin, Total 0.9 mg/dL (0.2-1.2); Calc. Creatinine Clearance 13 mL/min (70-130); Calcium 8.5 mg/dL (7.8-10.44); Carbon Dioxide 25 mmol/L (23-31); Chloride 105 mmol/L (98-107); Estimated GFR 10; Globulin 1.8 g/dL (2.4-3.5); Glucose 112 mg/dL (80-115); Potassium 4.7 mmol/L (3.5-5.1); Protein, Total 4.9 g/dL (5.8-8.1); Sodium 141 mmol/L (136-145)
[2023-01-14 06:49] LABS: Mean Corpuscular Volume 87.5 fl (78.0-98.0)
[2023-01-14 08:23] LABS: Hemoglobin 5.8 g/dL (14.0-18.0)
[2023-01-14] MEDS ORDERED: Acetaminophen 325 MG TAB PO PRN (08:38)
[2023-01-14] MEDS: Pantoprazole 40 MG VIAL IVP SCH (09:32)
[2023-01-14] MEDS ORDERED: Ondansetron HCl/PF 4 MG/2 ML Vial IVP PRN (15:17)
[2023-01-14] MEDS ORDERED: Promethazine HCl 25 MG/ML VIAL IM PRN (15:17)
[2023-01-14] MEDS ORDERED: Morphine Sulfate 2 MG/ML SYRINGE SLOW IVP PRN (15:17)
[2023-01-14] MEDS ORDERED: PROPOFOL 200 MG/20 ML VIAL ONE (15:37)
[2023-01-14] MEDS ORDERED: Lidocaine 1% PF 5 ML VIAL ONE (15:37)
[2023-01-14 17:02] LABS: Hemoglobin 7.6 g/dL (14.0-18.0)
[2023-01-15 04:30] LABS: #Basophils 0.1 thou/uL (0.0-0.2); #Eosinphils 0.5 thou/uL (0.0-0.7); #Monocytes 0.9 thou/uL (0.11-0.59); #Neutrophils 7.4 thou/uL (1.40-6.50); %Basophils 0.5 % (0.0-1.0); %Eosinophils 4.8 % (0.0-10.0); %Lymphocytes 16.6 % (21.0-51.0); %Monocytes 8.1 % (0.0-10.0); %Neutrophils 69.1 % (42.0-75.0); Hemoglobin 5.9 g/dL (14.0-18.0); Mean Corpuscular HGB CONC 33.7 g/dL (32.0-36.0); Mean Corpuscular Hemoglobin 28.2 pg (27.0-31.0); Mean Platelet Volume 10.9 fL (7.4-10.4); Platelet Count 120 10x3/uL (130-400); RBC Distribution Width 17.1 % (11.5-14.5); Red Blood Cell (RBC) Count 2.09 mill/uL (4.70-6.10); White Blood Cell (WBC) Count 10.7 10x3/uL (4.8-10.8)
[2023-01-15 04:41] LABS: Mean Corpuscular Volume 83.7 fl (78.0-98.0)
[2023-01-15 04:51] LABS: Anion Gap 15 mmol/L (10-20); BUN (Urea Nitrogen) 25 mg/dL (8.4-25.7); Calc. Creatinine Clearance 10 mL/min (70-130); Calcium 8.5 mg/dL (7.8-10.44); Carbon Dioxide 24 mmol/L (23-31); Chloride 103 mmol/L (98-107); Estimated GFR 7; Glucose 95 mg/dL (80-115); Potassium 4.6 mmol/L (3.5-5.1); Sodium 137 mmol/L (136-145)
[2023-01-15 07:56] LABS: HBSAg Index 0.16 S/CO (0-0.99); Hep B Core Total Ab Non-Reactive (NonReactive); Hep B Core Total Index 0.06 S/CO (0-0.79); Hep B Surf Ag Non-Reactive S/CO (NonReactive); Hep C IgG Ab Non-Reactive S/CO (NonReactive); Hep C Index 0.04 S/CO (0-0.79)
[2023-01-15 08:01] LABS: HBSAB Concentration 24.38 mIU/mL; Hep B Surf AB Reactive (NonReactive)
[2023-01-15] MEDS ORDERED: NIFEdipine XL 60 MG TAB PO SCH (09:00)
[2023-01-15 10:10] LABS: Hemoglobin 7.3 g/dL (14.0-18.0)
[2023-01-15] MEDS: NIFEdipine XL 90 MG TAB PO SCH (11:07)
[2023-01-15 13:46] LABS: Hemoglobin 8.8 g/dL (14.0-18.0)
[2023-01-16 04:37] LABS: Hemoglobin 8.1 g/dL (14.0-18.0)
[2023-01-16 04:39] LABS: Mean Corpuscular HGB CONC 34.3 g/dL (32.0-36.0); Mean Corpuscular Hemoglobin 28.6 pg (27.0-31.0); Mean Corpuscular Volume 83.4 fl (78.0-98.0); Mean Platelet Volume 10.6 fL (7.4-10.4); Platelet Count 143 10x3/uL (130-400); RBC Distribution Width 15.4 % (11.5-14.5); Red Blood Cell (RBC) Count 2.83 mill/uL (4.70-6.10); White Blood Cell (WBC) Count 10.5 10x3/uL (4.8-10.8)
[2023-01-16 05:08] LABS: Anion Gap 13 mmol/L (10-20); BUN (Urea Nitrogen) 13 mg/dL (8.4-25.7); Calc. Creatinine Clearance 14 mL/min (70-130); Calcium 8.5 mg/dL (7.8-10.44); Carbon Dioxide 25 mmol/L (23-31); Chloride 101 mmol/L (98-107); Estimated GFR 11; Glucose 113 mg/dL (80-115); Potassium 3.8 mmol/L (3.5-5.1); Sodium 135 mmol/L (136-145)
[2023-01-16] MEDS: NIFEdipine XL 90 MG TAB PO SCH (08:28)
[2023-01-16] MEDS ORDERED: Losartan 25 MG TAB PO SCH (09:00)
[2023-01-16 11:25] VITALS: TEMP 97
[2023-01-16 12:00] VITALS: BP 184/82
[2023-01-16] MEDS ORDERED: Carvedilol 25 MG TAB PO SCH ×2 (12:15→21:00)
== END 2023-01-16 14:18 | disposition home or self-care (01) | DRG 377 ==
LOC: ERS 09:55 → ERHOLD 12:45 → 2NO 16:40
PROVIDERS: ADMIT Internal Medicine; ATTEND Internal Medicine
PROC: 30233N1 Transfusion of Nonautologous Red Blood Cells into Peripheral Vein, Percutaneous Approach (ICD-10-PCS; 2023-01-13)
PROC: 5A1D70Z Performance of Urinary Filtration, Intermittent, Less than 6 Hours Per Day (ICD-10-PCS; 2023-01-13)
PROC: 0W3P8ZZ Control Bleeding in Gastrointestinal Tract, Via Natural or Artificial Opening Endoscopic (ICD-10-PCS; principal; 2023-01-14)
PROC: 0DJ08ZZ Inspection of Upper Intestinal Tract, Via Natural or Artificial Opening Endoscopic (ICD-10-PCS; 2023-01-14)
PROC: 0D9670Z Drainage of Stomach with Drainage Device, Via Natural or Artificial Opening (ICD-10-PCS; 2023-01-14)
DX: K57.31 Diverticulosis of large intestine without perforation or abscess with bleeding (principal); N18.6 End stage renal disease; D62 Acute posthemorrhagic anemia; I12.0 Hypertensive chronic kidney disease with stage 5 chronic kidney disease or end stage renal disease; E11.22 Type 2 diabetes mellitus with diabetic chronic kidney disease; E78.5 Hyperlipidemia, unspecified; K21.9 Gastro-esophageal reflux disease without esophagitis; D63.8 Anemia in other chronic diseases classified elsewhere; K64.8 Other hemorrhoids; K57.30 Diverticulosis of large intestine without perforation or abscess without bleeding; Z98.890 Other specified postprocedural states; Z87.891 Personal history of nicotine dependence; Z79.899 Other long term (current) drug therapy
CPT/HCPCS: 36415; 36416; 36430; 74018; 80048; 80053; 80061; 83036; 85025; 85027; 86704; 86850; 86900; 86901; 90935; 99284; C9113; G0257; J2405; J2704; P9016

== ENCOUNTER 2023-02-17 09:55 | Observation (INO) | payer MEDICARE ==
[2023-02-17 11:10] LABS: #Eosinphils 0.2 thou/uL (0.0-0.7); #Monocytes 0.6 thou/uL (0.11-0.59); %Basophils 0.6 % (0.0-1.0); %Eosinophils 3.6 % (0.0-10.0); %Lymphocytes 10.6 % (21.0-51.0); %Monocytes 9.1 % (0.0-10.0); %Neutrophils 75.8 % (42.0-75.0); Hematocrit 28.2 % (42.0-52.0); Hemoglobin 9.1 g/dL (14.0-18.0); Mean Corpuscular HGB CONC 32.3 g/dL (32.0-36.0); Mean Corpuscular Hemoglobin 27.7 pg (27.0-31.0); Mean Platelet Volume 10.7 fL (7.4-10.4); Platelet Count 228 10x3/uL (130-400); RBC Distribution Width 14.7 % (11.5-14.5); Red Blood Cell (RBC) Count 3.28 mill/uL (4.70-6.10); White Blood Cell (WBC) Count 6.6 10x3/uL (4.8-10.8)
[2023-02-17 11:23] LABS: INR-International Normal Ratio 1.2; Prothrombin Time 15.2 sec (12.0-14.7)
[2023-02-17 11:24] LABS: PTT 28.9 sec (22.9-36.1)
[2023-02-17 11:32] LABS: ALT (SGPT) Less than 7 U/L (8-55); AST (SGOT) 9 U/L (5-34); Albumin 4.1 g/dL (3.4-4.8); Alkaline Phosphatase 121 U/L (40-110); Anion Gap 16 mmol/L (10-20); BUN (Urea Nitrogen) 14 mg/dL (8.4-25.7); Bilirubin, Total 0.6 mg/dL (0.2-1.2); Calc. Creatinine Clearance 0 mL/min (70-130); Calcium 9.5 mg/dL (7.8-10.44); Carbon Dioxide 30 mmol/L (23-31); Chloride 97 mmol/L (98-107); Estimated GFR 14; Globulin 3.5 g/dL (2.4-3.5); Glucose 107 mg/dL (80-115); Potassium 3.7 mmol/L (3.5-5.1); Protein, Total 7.6 g/dL (5.8-8.1); Sodium 139 mmol/L (136-145)
[2023-02-17] MEDS ORDERED: Carvedilol 25 MG TAB PO SCH (11:45)
[2023-02-17] MEDS ORDERED: Losartan 25 MG TAB PO SCH (12:00)
[2023-02-17] MEDS ORDERED: NIFEdipine XL 90 MG TAB PO SCH (12:00)
[2023-02-17] MEDS ORDERED: cefTRIAXone (ROCEPHIN) 2 GM VIAL ONE (13:30)
[2023-02-17] MEDS ORDERED: Azithromycin 500 MG VIAL ONE (15:17)
[2023-02-17 15:56] VITALS: BMI 27.4
[2023-02-17] MEDS ORDERED: Acetaminophen 325 MG TAB PO PRN (16:15)
[2023-02-17] MEDS ORDERED: Acetaminophen 500 MG TAB PO PRN (17:45)
[2023-02-17] MEDS ORDERED: hydrALAZINE 20 MG/ML VIAL SLOW IVP PRN (17:45)
[2023-02-17] MEDS ORDERED: Ondansetron ODT 4 MG TAB PO PRN (17:45)
[2023-02-17] MEDS ORDERED: Labetalol HCl 100 MG/20 ML VIAL SLOW IVP PRN (17:45)
[2023-02-17] MEDS ORDERED: Ondansetron PF 4 MG/2 ML Vial IVP PRN (17:45)
[2023-02-17] MEDS ORDERED: Sevelamer Carbonate 800 MG TAB PO SCH (18:00)
[2023-02-17] MEDS: Carvedilol 25 MG TAB PO SCH (20:28)
[2023-02-17] MEDS ORDERED: Famotidine 20 MG TAB PO SCH (21:00)
[2023-02-17] MEDS ORDERED: Atorvastatin Calcium 40 MG TAB PO SCH (21:00)
[2023-02-18 06:24] LABS: #Eosinphils 0.3 thou/uL (0.0-0.7); #Monocytes 0.7 thou/uL (0.11-0.59); #Neutrophils 6.4 thou/uL (1.40-6.50); %Basophils 0.5 % (0.0-1.0); %Eosinophils 3.1 % (0.0-10.0); %Lymphocytes 9.1 % (21.0-51.0); %Monocytes 8.1 % (0.0-10.0); Hematocrit 27.7 % (42.0-52.0); Hemoglobin 8.9 g/dL (14.0-18.0); Mean Corpuscular HGB CONC 32.1 g/dL (32.0-36.0); Mean Corpuscular Hemoglobin 27.6 pg (27.0-31.0); Mean Corpuscular Volume 85.8 fl (78.0-98.0); Mean Platelet Volume 10.8 fL (7.4-10.4); Platelet Count 249 10x3/uL (130-400); RBC Distribution Width 14.5 % (11.5-14.5); Red Blood Cell (RBC) Count 3.23 mill/uL (4.70-6.10); White Blood Cell (WBC) Count 8.1 10x3/uL (4.8-10.8)
[2023-02-18 06:46] LABS: Anion Gap 17 mmol/L (10-20); BUN (Urea Nitrogen) 22 mg/dL (8.4-25.7); Calc. Creatinine Clearance 13 mL/min (70-130); Calcium 9.1 mg/dL (7.8-10.44); Carbon Dioxide 27 mmol/L (23-31); Chloride 97 mmol/L (98-107); Estimated GFR 9; Glucose 93 mg/dL (80-115); Potassium 4.4 mmol/L (3.5-5.1); Sodium 137 mmol/L (136-145)
[2023-02-18] MEDS ORDERED: Sevelamer Carbonate 800 MG TAB PO SCH (08:00)
[2023-02-18] MEDS: Sevelamer Carbonate 800 MG TAB PO SCH ×2 (08:41→11:59)
[2023-02-18] MEDS: Carvedilol 25 MG TAB PO SCH (08:41)
[2023-02-18] MEDS ORDERED: NIFEdipine XL 90 MG TAB PO SCH (09:00)
[2023-02-18] MEDS ORDERED: Folic Acid/Vit B Comp W-C PO SCH (09:00)
[2023-02-18] MEDS ORDERED: Aspirin 81 mg Enteric Coated Tablet PO SCH (09:00)
[2023-02-18 11:55] VITALS: BP 147/65; TEMP 98.4
== END 2023-02-18 15:25 | disposition home or self-care (01) ==
LOC: ERS 09:55 → T4-A 13:10
PROVIDERS: ADMIT Family Medicine; ATTEND Internal Medicine
DX: I16.0 Hypertensive urgency (principal); I12.9 Hypertensive chronic kidney disease with stage 1 through stage 4 chronic kidney disease, or unspecified chronic kidney disease; N18.6 End stage renal disease; D63.1 Anemia in chronic kidney disease; E78.5 Hyperlipidemia, unspecified; Z87.891 Personal history of nicotine dependence; Z79.82 Long term (current) use of aspirin; Z79.899 Other long term (current) drug therapy
CPT/HCPCS: 71045; 80048; 80053; 82962 ×2; 84484; 85025 ×2; 85610; 85730; 87040; 93005; 96374; 96375; 99284; G0378 ×3; J0360; J0456; 36415; 36416; J0696